=== PATIENT | male | born 1970 | race Caucasian/White ===

== ENCOUNTER 2017-03-01 10:53 | Emergency (ER) | payer OTHER, BC ==
[2017-03-01 10:59] VITALS: BP 148/97; PULSE 74; TEMP 98.6; BMI 30.4
--- NOTE | 2017-03-01 11:43 | PDOC ---
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 Patient states that he's had a metallic taste in his mouth for a few days, and then for the past 24 hours he's been having some right facial numbness and weakness He denies any drooling or tearing He is able to chew and swallow his food without difficulties He denies any other neuro symptoms, or weakness, or numbness, or tingling in his extremities He denies any recent intercurrent illnesses or head injury He denies any fever or chills He denies any double vision or blurred vision He denies any other complaints at this time NIH Stroke Scale - Initial Evaluation Level of consciousness: Alert Ask patient the month and their age: Answers both correctly Ask patient to open & close eyes; make fist and let go: Obeys both correctly Best gaze (horizontal eye movement): Normal Visual field testing: No visual field loss Facial paresis (Show teeth/raise eyebrows/close eyes tight): Partial paralysis ( total or near paralysis of lower face) Motor Function: Left Arm: Normal Motor Function: Right Arm: Normal (extends arm 90 (or 45) degrees for 10 seconds without drift Motor Function: Left Leg: Normal (extends leg 30 degrees for 5 seconds without drift) Motor Function: Right Leg: Normal (extends leg 30 degrees for 5 seconds without drift) Limb Ataxia: No ataxia Sensory(Use pinprick test arms,legs,trunk,face/side to side): Normal Best language (Describe picture, name items, read sentences): No Aphasia Dysarthria (read several words): Normal articulation Extinction and Inattention: No abnormality - Total Score NIH Stroke Scale Score: 2 Past History - Past Medical History Allergies/Adverse Reactions: Allergies Allergy/AdvReac Type Severity Reaction Status Date / Time No Known Allergies Allergy Verified 03/01/17 10:55 Home Medications: Ambulatory Orders Doxycycline Hyclate [Vibratab -] 100 mg PO BID #30 tablet 03/01/17 Losartan Potassium [Cozaar -] 0 mg PO DAILY 03/01/17 Methylprednisolone [Medrol Dose Leland] 4 mg PO ASDIR #21 tablet 03/01/17 Rosuvastatin Calcium [Crestor] 0 mg PO DAILY 03/01/17 Tobramycin Sulf/Dexamethasone [Tobradex *Eye Ointment*] 1 applic OD TID #1 tube 03/02/17 HTN: Yes Hypercholesterolemia: Yes - Psycho/Social/Smoking Cessation Hx Anxiety: No Suicidal Ideation: No Smoking History: Never smoked Hx Alcohol Use: Yes Drug/Substance Use Hx: No Substance Use Type: Alcohol Review of Systems - Review of Systems Able to Perform ROS?: Yes Comments:: 03/01/17 11:40 12 point review of systems is as per history of present illness and otherwise negative *Physical Exam - Vital Signs Last Vital Signs Temp Pulse Resp BP Pulse Ox 98.6 F 74 16 148/97 100 03/01/17 10:55 03/01/17 10:55 03/01/17 10:55 03/01/17 10:55 03/01/17 10:55 - Physical Exam Comments: 03/01/17 11:40 Physical exam Last Vital Signs Temp Pulse Resp BP Pulse Ox 98.6 F 74 16 148/97 100 03/01/17 10:55 03/01/17 10:55 03/01/17 10:55 03/01/17 10:55 03/01/17 10:55 GENERAL: The patient is awake, alert, and fully oriented, and in no apparent distress. HEAD: Normal with no signs of trauma. EYES: Pupils equal, round and reactive to light, extraocular movements intact, sclera anicteric, conjunctiva are normal. ENT: nares patent, oropharynx clear without exudates. Moist mucous membranes. NECK: Normal range of motion, supple LUNGS: Breath sounds equal, clear to auscultation bilaterally. No wheezes, and no crackles. HEART: Regular rate and rhythm, normal S1 and S2 without murmur, rub or gallop. ABDOMEN: Soft, nontender, normoactive bowel sounds. No guarding, no rebound. No masses appreciated. EXTREMITIES: Normal range of motion, no edema. No clubbing or cyanosis. No cords, erythema, or tenderness. NEURO: Mental status: The patient is oriented x3. Cranial nerves: There is a right facial droop, and some loss of sensation on the right face There is an asymmetrical smile Patient can partially lift the right eyebrow, but does not crease his right forehead Motor: The upper extremities are 5 over 5 in all muscle groups. The lower extremities are 5 over 5 in all muscle groups. Sensation: Sensation is intact to light touch throughout, except for some diminished sensation in the right face Gait: Normal. Heel and toe walking are normal. Tandem gait is normal. PSYCH: Normal mood, normal affect. SKIN: Warm, Dry, normal turgor, no rashes or lesions noted. 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 The fourth ventricle appears unremarkable. There is of the inferior cerebellar vermis No CT evidence of acute intracranial pathology Labwork reviewed Laboratory Results - last 24 hr 03/01/17 03/01/17 03/01/17 11:58 11:58 11:58 WBC 5.5 RBC 4.91 Hgb 15.6 Hct 44.3 MCV 90.4 MCHC 35.1 RDW 11.5 L Plt Count 208 MPV 8.2 INR 1.03 Sodium 137 Potassium 4.3 Chloride 105 Carbon Dioxide 26 Anion Gap 6 L BUN 19 H Creatinine 0.9 Creat Clearance w eGFR > 60 Random Glucose 107 H Calcium 9.5 Total Bilirubin 1.0 AST 28 ALT 34 Alkaline Phosphatase 80 Total Protein 6.5 Albumin 4.[address] 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, as well as a Medrol Dosepak Neurology agrees Will see patient in the office on Thursday Impression-Mccullough's palsy 03/01/17 14:51 EKG Normal sinus rhythm 61, left axis deviation -40 Normal AV and IV conduction time Normal QTC Otherwise normal EKG *DC/Admit/Observation/Transfer Diagnosis at time of Disposition: Mccullough's palsy - Discharge Dispostion Disposition: HOME Condition at time of disposition: Stable - Prescriptions Prescriptions: Methylprednisolone [Medrol Dose Leland] 4 mg PO ASDIR #21 tablet Doxycycline Hyclate [Vibratab -] 100 mg PO BID #30 tablet - Referrals Referrals: Donald Herron [Primary Care Provider] - Ruben Mello MD [Staff Physician] - (Neurology - please call for an appoinrment to be seen on Thursday Please call the [facility] office - [phone]) - Patient Instructions Printed Discharge Instructions: DI for Mccullough's Palsy, Mccullough's Palsy Additional Instructions: Doxycycline-one pill twice a day Medrol Dosepak-take as directed until completed Please follow-up with neurology-Dr. Mello-call Thursday to be seen in the office Neurology - please call for an appoinrment to be seen on Thursday Please call the [facility] office - [phone] Followup with your primary care physician in 48 hours Return immediately if you worsen in any way Take your medications as directed - Post Discharge Activity Work/School Note: Back to Work
[2017-03-01 12:27] LABS: MCH 31.7 pg (25.7-33.7); MCHC 35.1 g/dl (32.0-35.9); MEAN CELL VOLUME 90.4 fl (80-96); MEAN PLT VOLUME 8.2 fl (7.5-11.1); PLATELET COUNT 208 K/MM3 (134-434); RDW 11.5 % (11.9-15.9); WHITE BLOOD COUNT 5.5 K/mm3 (4.0-10.8)
[2017-03-01 12:30] LABS: INR 1.03 (0.82-1.09); PROTHROMBIN TIME (PATIENT) 11.5 SEC (10.2-13.0)
[2017-03-01 12:37] LABS: ALBUMIN 4.2 g/dl (3.5-5.0); ALK PHOS 80 U/L (32-92); ANION GAP 6 (8-16); CALCIUM 9.5 mg/dl (8.4-10.2); CO2 26 mmol/L (22-28); CREATININE 0.9 mg/dl (0.6-1.3); GLUCOSE,RANDOM 107 mg/dl (74-106); SGOT/AST 28 U/L (10-42); SGPT/ALT 34 U/L (10-40); TOT PROT 6.5 g/dl (6.4-8.3)
[2017-03-01 12:54] LABS: COCKROFT - GAULT NT
[2017-03-01] MEDS ORDERED: DOXYCYCLINE HYCLATE 100 MG CAPSULE PO ONE ×2 (13:59→14:11)
--- NOTE | 2017-03-02 10:40 | EKG ---
Test Reason : Blood Pressure : / mmHG Vent. Rate : 061 BPM Atrial Rate : 061 BPM P-R Int : 144 ms QRS Dur : 096 ms QT Int : 394 ms P-R-T Axes : 045 -40 004 degrees QTc Int : 396 ms NORMAL SINUS RHYTHM LEFT AXIS DEVIATION MINIMAL VOLTAGE CRITERIA FOR LVH, MAY BE NORMAL VARIANT ABNORMAL ECG NO PREVIOUS ECGS AVAILABLE Confirmed by TAI BROTHERS, DANIELE ([id number]) on 03/02/2017 10:40:28 AM Referred By: RODDY UREÑA Confirmed By:DANIELE LUJAN MD
== END 2017-03-01 14:32 | disposition home or self-care (01) ==
LOC: FER 10:53
DX: G51.0 Bell's palsy (principal); I10 Essential (primary) hypertension; E78.00 Pure hypercholesterolemia, unspecified
CPT/HCPCS: 36415; 70450-TC; 80053; 85027; 85610; 86618; 93005; 99283-25

== ENCOUNTER 2017-03-02 18:14 | Emergency (ER) | payer BC, OTHER ==
--- NOTE | 2017-03-02 18:22 | PDOC ---
History of Present Illness - General Chief Complaint: Blurry Vision Stated Complaint: blurry vision Time Seen by Provider: 03/02/17 18:22 History Source: Patient Exam Limitations: No Limitations - History of Present Illness Initial Comments: 03/02/17 18:28 46 y/o male with hx of HTN and hypercholesterolemia, who was seen yesterday for [place]' Palsy, presents with right eye blurriness since 12 pm today. Patient has appointment wto see Neurologist this week. Denies weakness in UE and LE. No chest pain, SOB, fever or chills. Noticed right eye is red. Denies headache, chest pain or SOB. No fall or trauma. Timing/Duration: 4-6 hours Severity: mild Associated Symptoms: denies: chest pain, cough, headaches NIH Stroke Scale - Initial Evaluation Level of consciousness: Alert Ask patient the month and their age: Answers both correctly Ask patient to open & close eyes; make fist and let go: Obeys both correctly Best gaze (horizontal eye movement): Normal Visual field testing: No visual field loss Facial paresis (Show teeth/raise eyebrows/close eyes tight): Normal symmetrical movement Motor Function: Left Arm: Normal Motor Function: Right Arm: Normal (extends arm 90 (or 45) degrees for 10 seconds without drift Motor Function: Left Leg: Normal (extends leg 30 degrees for 5 seconds without drift) Motor Function: Right Leg: Normal (extends leg 30 degrees for 5 seconds without drift) Limb Ataxia: No ataxia Sensory(Use pinprick test arms,legs,trunk,face/side to side): Normal Best language (Describe picture, name items, read sentences): No Aphasia Dysarthria (read several words): Normal articulation Extinction and Inattention: No abnormality (right eye red) - Total Score NIH Stroke Scale Score: 0 Past History - Past Medical History Allergies/Adverse Reactions: Allergies Allergy/AdvReac Type Severity Reaction Status Date / Time No Known Allergies Allergy Verified 03/01/17 10:55 Home Medications: Ambulatory Orders Doxycycline Hyclate [Vibratab -] 100 mg PO BID #30 tablet 03/01/17 Losartan Potassium [Cozaar -] 0 mg PO DAILY 03/01/17 Methylprednisolone [Medrol Dose Leland] 4 mg PO ASDIR #21 tablet 03/01/17 Rosuvastatin Calcium [Crestor] 0 mg PO DAILY 05/28/17 HTN: Yes Hypercholesterolemia: Yes - Psycho/Social/Smoking Cessation Hx Anxiety: No Suicidal Ideation: No Smoking History: Never smoked Hx Alcohol Use: Yes Drug/Substance Use Hx: No Substance Use Type: Alcohol Review of Systems - Review of Systems Able to Perform ROS?: Yes Is the patient limited Somali proficient: No Constitutional: No: Chills, Fever HEENTM: Yes: Eye Pain, Other (blurred vision) Respiratory: No: Cough, Orthopnea, Shortness of Breath Cardiac (ROS): No: Chest Pain Musculoskeletal: No: Back Pain Neurological: Yes: Paresthesia. No: Headache, Numbness, Unsteady Gait All Other Systems: Reviewed and Negative *Physical Exam - Physical Exam General Appearance: Yes: Nourished, Appropriately Dressed. No: Apparent Distress HEENT: positive: EOMI, DREW, Normal ENT Inspection, Normal Voice, Pharynx Normal , Other (right eye red and mild swelling under right eye noted, no drainage or corneal abrasion seen in right eye) Neck: positive: Trachea midline, Supple Respiratory/Chest: positive: Lungs Clear, Normal Breath Sounds. negative: Chest Tender Cardiovascular: positive: Regular Rhythm, Regular Rate, S1, S2. negative: Edema , JVD, Murmur Vascular Pulses: Femoral (R): 4+, Femoral (L): 4+, Carotid (R): 4+, Carotid (L) : 4+, Dorsalis-Pedis (R): 4+, Doralis-Pedis (L): 4+ Gastrointestinal/Abdominal: positive: Normal Bowel Sounds, Flat, Soft. negative : Tender, Organomegaly, Pulsatile Mass Musculoskeletal: positive: Normal Inspection. negative: CVA Tenderness Extremity: positive: Normal Capillary Refill, Normal Inspection, Normal Range of Motion. negative: Swelling, Calf Tenderness Integumentary: positive: Normal Color, Dry, Warm Neurologic: positive: Fully Oriented, Alert, Normal Mood/Affect, Normal Response , Motor Strength 5/5, Other (right facial palsy, mild droop, unable to blink right eye and smile, UE and LE, no focal derficits, strength 5+/5 b/l in UE and LE). 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 Stevenson, further disposition as per Dr. Stevenson *DC/Admit/Observation/Transfer Diagnosis at time of Disposition: Irritation of right eye, Mccullough's disease
[2017-03-02 18:23] VITALS: BMI 33.4
[2017-03-02 18:36] VITALS: TEMP 98.1
--- NOTE | 2017-03-02 19:48 | PDOC ---
*Physical Exam - Vital Signs Last Vital Signs Temp Pulse Resp BP Pulse Ox 98.1 F 71 16 139/90 97 03/02/17 18:16 03/02/17 20:12 03/02/17 20:12 03/02/17 20:12 03/02/17 20:12 <Uts,Amy - Last Filed: 03/02/17 20:17> - Vital Signs Last Vital Signs Temp Pulse Resp BP Pulse Ox 98.1 F 80 16 150/91 100 03/02/17 18:16 03/02/17 18:16 03/02/17 18:16 03/02/17 18:16 03/02/17 18:16 <Dionne Payne I - Last Filed: 03/02/17 20:21> ED Treatment Course - RADIOLOGY Radiograph Interpretation: 03/02/17 20:[address] impression reported by Dr. Saxena: FINDINGS:Serial transaxial images of the brain are available without intravenous contrast agent. There is a large CSF-containing space posteriorly possibly representing an arachnoid cyst. This is midline in position. Otherwise the brain parenchyma is within normal limits. There is no midline shift or acute hemorrhage. The ventricular system is within normal limits. The mastoid air cells are well-aerated. Calvarium appears intact IMPRESSION: No acute findings - Medications Given in the ED: ED Medications Discontinued Medications Generic Name Dose Route Start Last Admin Trade Name Freq PRN Reason Stop Dose Admin Tobramycin/Dexamethasone 1 applic 03/02/17 19:52 03/02/17 20:12 Tobradex Ophthalmic Ointment - OD 03/02/17 19:53 1 applic ONCE ONE Administration <Uts,Amy - Last Filed: 03/02/17 20:17> Progress Note - Progress Note Progress Note: Care of this patient was transferred to nm from Dr. Collier at 1900 hrs. Patient is a 46-year-old male with history of Mccullough's policy that was recently diagnosed by this emergency department yesterday. Patient has a anomaly on his CAT scan that is an incidental finding of a retro- cerebellar cistern otherwise no abnormalities.. Patient comes back in today complaining of some blurriness of his vision in his right eye only which is the side of the Mccullough's policy. Patient had his CAT scan repeated and the result is still pending Plan is to discharge patient on some tobramycin with dexamethasone opthalmic ointment and give him a referral to an ophthalmologi. 20:20 CT scan shows no acute pathology. No bleed or mass. Patient discharged home with Tobrex ointment and ophthalmology referral. Patient also has an appointment for a neurologist on Thursday of this week. <Dionne Payne I - Last Filed: 03/02/17 20:21> *DC/Admit/Observation/Transfer - Attestations Scribe Attestion: 03/02/17 20:18 Documentation prepared by Amy Pierce, acting as medical research tech for Dionne Payne MD. <Amy Pierce - Last Filed: 03/02/17 20:17> <Dionne Payne I - Last Filed: 03/02/17 20:21> Diagnosis at time of Disposition: Irritation of right eye, Mccullough's disease - Discharge Dispostion Disposition: HOME - Prescriptions Prescriptions: Tobramycin Sulf/Dexamethasone [Tobradex *Eye Ointment*] 1 applic OD TID #1 tube - Patient Instructions Additional Instructions: Put tobramycin ointment in your eye 3 times a day to help prevent infection and for inflammation. make sure that the ointment is in your eye when you go to bed. Follow-up with an machinist if you need an machinist called Dr. Aguila at [phone]. Return to the emergency department immediately with ANY new, persistent or worsening symptoms. Continue any medications as previously prescribed by your physician. You should follow up with your primary doctor as soon as possible regarding today's emergency department visit. . Please make sure your doctor reviews the results of your emergency evaluation. Thank you for coming to the Emergency Department today for your care. It was a pleasure to see you today. Please note that your evaluation is INCOMPLETE until you follow-up with your doctor.
[2017-03-02] MEDS ORDERED: TOBRAMYCIN/DEXAMETHASONE OPHTH. OINTMENT 1 TUBE OD ONE (19:52)
[2017-03-02] MEDS ORDERED: TOBRAMYCIN/DEXAMETHASONE OPHTH. OINTMENT 1 TUBE ONE (20:05)
[2017-03-02 20:13] VITALS: BP 139/90; PULSE 71
== END 2017-03-02 20:20 | disposition home or self-care (01) ==
LOC: FER 18:14
DX: G51.0 Bell's palsy (principal); H57.8 Other specified disorders of eye and adnexa; I10 Essential (primary) hypertension; E78.00 Pure hypercholesterolemia, unspecified
CPT/HCPCS: 70450-TC; 99282-25

== ENCOUNTER 2017-03-15 22:10 | Emergency (ER) | payer BC, OTHER ==
[2017-03-15] MEDS ORDERED: diazePAM 5 MG TABLET PO ONE (22:15)
[2017-03-15] MEDS ORDERED: KETOROLAC TROMETHAMINE 60 MG/2 ML VIAL IM ONE (22:15)
--- NOTE | 2017-03-15 22:17 | PDOC ---
History of Present Illness - General Chief Complaint: Pain, Acute Stated Complaint: BACK SPASMS - History of Present Illness Initial Comments: 03/16/17 03:58 LBP x 3 days went to --got shot and prescribed flexeril persistent pain no f/c no weakness no change in urine/ stool LBP is lower back, nonradiating, sharp pmh: denies fhx: noncontrib ros: reviewed and otherwise negative Physical exam: GENERAL: [The patient is awake, alert, and fully oriented, and in no apparent distress.] HEAD: [Normal with no signs of trauma.] EYES: [Pupils equal, round and reactive to light, extraocular movements intact, sclera anicteric, conjunctiva are normal.] ENT: [TMs normal, nares patent, oropharynx clear without exudates. Moist mucous membranes.] NECK: [Normal range of motion, supple without lymphadenopathy, JVD, or masses.] LUNGS: [Breath sounds equal, clear to auscultation bilaterally. No wheezes, and no crackles.] HEART: [Regular rate and rhythm, normal S1 and S2 without murmur, rub or gallop.] ABDOMEN: [Soft, nontender, normoactive bowel sounds. No guarding, no rebound. No masses appreciated.] BAck: paraspinal muscle tenderness EXTREMITIES: [Normal range of motion, no edema. No clubbing or cyanosis. No cords, erythema, or tenderness.] NEUROLOGICAL: [Cranial nerves II through XII grossly intact. Normal speech, normal gait.] PSYCH: [Normal mood, normal affect.] SKIN: [Warm, Dry, normal turgor, no rashes or lesions noted.] a/p lbp nsaids diazepam Past History - Past Medical History Allergies/Adverse Reactions: Allergies Allergy/AdvReac Type Severity Reaction Status Date / Time No Known Allergies Allergy Verified 03/01/17 10:55 Home Medications: Ambulatory Orders Losartan Potassium [Cozaar -] 0 mg PO DAILY 03/01/17 Rosuvastatin Calcium [Crestor] 0 mg PO DAILY 03/01/17 HTN: Yes Hypercholesterolemia: Yes - Psycho/Social/Smoking Cessation Hx Anxiety: No Suicidal Ideation: No Smoking History: Never smoked Hx Alcohol Use: Yes Drug/Substance Use Hx: No Substance Use Type: Alcohol *DC/Admit/Observation/Transfer Diagnosis at time of Disposition: Low back pain Qualifiers: Chronicity: acute Back pain laterality: midline Sciatica presence: without sciatica Qualified Code(s): M54.5 - Low back pain - Discharge Dispostion Disposition: HOME Condition at time of disposition: Stable - Patient Instructions Printed Discharge Instructions: DI for Low Back Pain
[2017-03-15 22:20] VITALS: BP 150/98; PULSE 88; TEMP 98.8; BMI 29.6
[2017-03-15] MEDS ORDERED: KETOROLAC TROMETHAMINE 60 MG/2 ML VIAL ONE (22:20)
[2017-03-15] MEDS ORDERED: diazePAM 5 MG TABLET ONE (22:21)
== END 2017-03-16 00:04 | disposition home or self-care (01) ==
LOC: FER 22:10
PROC: 3E0233Z Introduction of Anti-inflammatory into Muscle, Percutaneous Approach (ICD-10-PCS; principal; 2017-03-15)
DX: M54.5 Low back pain (principal); I10 Essential (primary) hypertension; E78.00 Pure hypercholesterolemia, unspecified
CPT/HCPCS: 99281-25